=== PATIENT | male | born 1955 | race African-American/Black ===

== ENCOUNTER 2018-12-13 07:30 | Inpatient (IN) ==
[2018-12-09 10:54] LABS: Basophils # 0.1 10*3/uL (0.0-0.2); Basophils % 0.6 % (0.0-0.8); Eosinophils # 0.2 10*3/uL (0.0-0.87); Eosinophils % 2.4 % (0.00-10.9); Hematocrit 38.9 VOL% (42.0-52.0); Hemoglobin 12.5 GM/DL (14.0-18.0); Immature Granulocytes % 0.4 %; Immature Granulocytes Absolute 0.03 #; Lymphocytes % 36.4 % (21.2-54.2); Mean Corpuscular HGB Conc 32.1 GM/DL (32-36); Mean Corpuscular Hemoglobin 28 PG (27-34); Mean Platelet Volume 9.1 FL (9.6-12.0); Monocytes # 0.6 10*3/uL (0.11-0.8); Monocytes % 7.3 % (1.7-12.7); Neutrophils # 4.4 10*3/uL (1.4-7.4); Neutrophils % 52.9 % (38.7-73.9); Platelet Count 419 T/CUMM (130-400); Red Blood Count 4.47 MC/CUMM (3.8-5.5); Red Cell Distribution Width 14.6 % (9.3-17.3); White Blood Count 8.3 T/CUMM (4-12)
[2018-12-09 11:13] LABS: Eosinophils 1 % (0-10); Hypochromasia 1+; Lymphocytes 34 % (20-55); Platelet Estimate Adequate; Segmented Neutrophils 59 % (50-85); Total Cells Counted 100
[2018-12-09 11:34] LABS: Albumin 3.5 G/DL (3.4-5.0); Bilirubin,Total 0.4 MG/DL (0.2-1.0); Calcium 8.9 MG/DL (8.5-10.1); Osmolality,Calculated 275.7 MOS/KG (273-304); Potassium 4.1 MMOL/L (3.5-5.1)
[~2018-12-13 07:30] MED LIST: ceFAZolin 1,000 MG in SYRINGE 1 EACH IV ONE
[2018-12-13] MEDS ORDERED: ceFAZolin 1,000 MG VIAL ONE ×2 (08:14→11:16)
[2018-12-13] MEDS: LACTATED RINGERS 1,000 ML IV SCH ×2 (08:48→23:54)
[2018-12-13] MEDS ORDERED: DIAZEPAM 5 MG TABLET PO ONE (09:33)
[2018-12-13] MEDS ORDERED: FAMOTIDINE 20 MG TABLET PO ONE (09:33)
[2018-12-13] MEDS ORDERED: FAMOTIDINE 20 MG TABLET ONE (10:19)
[2018-12-13] MEDS ORDERED: DIAZEPAM 5 MG TABLET ONE (10:19)
[2018-12-13] MEDS ORDERED: HEPARIN 5,000 UNIT/1 ML VIAL ONE (11:15)
[2018-12-13] MEDS ORDERED: ONDANSETRON 4 MG/2 ML VIAL IV PRN ×2 (14:08→14:48)
[2018-12-13] MEDS ORDERED: DEXTROSE 50% 25 GM/50 ML VIAL IV PRN (14:11)
[2018-12-13] MEDS ORDERED: GLUCAGON 1 MG VIAL IM PRN (14:11)
[2018-12-13] MEDS ORDERED: PROPOFOL 200 MG/20 ML VIAL IV ONE (14:17)
[2018-12-13] MEDS ORDERED: fentaNYL 100 MCG/2 ML VIAL ONE (14:18)
[2018-12-13] MEDS ORDERED: MIDAZOLAM 2 MG/2 ML VIAL ONE (14:18)
[2018-12-13] MEDS ORDERED: PHENYLEPHRINE DRIP 20 MG/250 ML PREMIX IV ONE (14:18)
[2018-12-13] MEDS ORDERED: SEVOFLURANE 1 UNIT/15 MINUTE INH ONE (14:18)
[2018-12-13] MEDS ORDERED: GLYCOPYRROLATE 0.4 MG/2 ML VIAL ONE (14:18)
[2018-12-13] MEDS ORDERED: ePHEDrine 50 MG/ML AMP ONE (14:18)
[2018-12-13] MEDS ORDERED: ONDANSETRON 4 MG/2 ML VIAL ONE ×2 (14:18→14:45)
[2018-12-13] MEDS ORDERED: NEOSTIGMINE 10 MG/10 ML VIAL ONE (14:19)
[2018-12-13] MEDS ORDERED: ACETAMINOPHEN 1,000 MG/100 ML VIAL IV ONE (14:19)
[2018-12-13] MEDS ORDERED: LACTATED RINGERS 1,000 ML IV ONE (14:19)
[2018-12-13] MEDS ORDERED: ROCURONIUM 100 MG/10 ML VIAL IV ONE (14:19)
[2018-12-13] MEDS ORDERED: PHENYLEPHRINE 1 MG/10 ML SYRINGE IV ONE (14:19)
[2018-12-13] MEDS ORDERED: HYDROmorphone 2 MG/1 ML VIAL ONE (14:45)
[2018-12-13] MEDS ORDERED: HYDROmorphone 2 MG/1 ML VIAL IV PRN (14:48)
[2018-12-13] MEDS ORDERED: DEXTROSE 50% 25 GM/50 ML SYRINGE IV PRN (15:30)
[2018-12-13] MEDS: GABAPENTIN 400 MG CAPSULE PO SCH ×2 (17:28→21:31)
[2018-12-13] MEDS: INSULIN REGULAR 100 UNIT/ML SUBCUT SCH ×2 (17:30→21:31)
[2018-12-13] MEDS: CILOSTAZOL 100 MG TABLET PO SCH (21:30)
[2018-12-13] MEDS: HYDROmorphone 2 MG/1 ML VIAL IV PRN (21:31)
[2018-12-14 05:00] LABS: Hematocrit 29.2 VOL% (42.0-52.0); Hemoglobin 9.6 GM/DL (14.0-18.0)
[2018-12-14 05:25] LABS: Calcium 7.9 MG/DL (8.5-10.1); Osmolality,Calculated 277.5 MOS/KG (273-304); Potassium 3.9 MMOL/L (3.5-5.1)
[2018-12-14] MEDS: INSULIN REGULAR 100 UNIT/ML SUBCUT SCH ×4 (07:30→21:07)
[2018-12-14] MEDS: LISINOPRIL/HCTZ 20-25 MG TABLET PO SCH (08:38)
[2018-12-14] MEDS: ROSUVASTATIN 20 MG TABLET PO SCH (08:38)
[2018-12-14] MEDS: CILOSTAZOL 100 MG TABLET PO SCH ×2 (08:38→21:10)
[2018-12-14] MEDS: ASPIRIN EC 81 MG TABLET PO SCH (08:39)
[2018-12-14] MEDS: GABAPENTIN 400 MG CAPSULE PO SCH ×3 (08:39→21:10)
[2018-12-14] MEDS: CLOPIDOGREL 75 MG TABLET PO SCH (08:39)
[2018-12-14] MEDS ORDERED: ASPIRIN CHEW 81 MG TABLET PO SCH (09:00)
[2018-12-14] MEDS: LACTATED RINGERS 1,000 ML IV SCH (09:10)
[2018-12-15] MEDS: INSULIN REGULAR 100 UNIT/ML SUBCUT SCH (08:30)
[2018-12-15 08:43] LABS: Basophils # 0.1 10*3/uL (0.0-0.2); Basophils % 0.6 % (0.0-0.8); Eosinophils # 0.1 10*3/uL (0.0-0.87); Hematocrit 31.4 VOL% (42.0-52.0); Hemoglobin 10.2 GM/DL (14.0-18.0); Immature Granulocytes % 0.4 %; Immature Granulocytes Absolute 0.04 #; Lymphocytes # 2.6 10*3/uL (1.4-4.0); Lymphocytes % 22.8 % (21.2-54.2); Mean Corpuscular HGB Conc 32.5 GM/DL (32-36); Mean Corpuscular Hemoglobin 28 PG (27-34); Mean Corpuscular Volume 86.7 FL (87-102); Monocytes # 1.4 10*3/uL (0.11-0.8); Neutrophils # 7.2 10*3/uL (1.4-7.4); Neutrophils % 63.2 % (38.7-73.9); Platelet Count 317 T/CUMM (130-400); Red Blood Count 3.62 MC/CUMM (3.8-5.5); Red Cell Distribution Width 14.8 % (9.3-17.3); White Blood Count 11.4 T/CUMM (4-12)
[2018-12-15] MEDS: HYDROmorphone 2 MG/1 ML VIAL IV PRN (09:09)
[2018-12-15] MEDS: CILOSTAZOL 100 MG TABLET PO SCH (09:10)
[2018-12-15] MEDS: ROSUVASTATIN 20 MG TABLET PO SCH (09:10)
[2018-12-15] MEDS: LISINOPRIL/HCTZ 20-25 MG TABLET PO SCH (09:10)
[2018-12-15] MEDS: ASPIRIN EC 81 MG TABLET PO SCH (09:11)
[2018-12-15] MEDS: CLOPIDOGREL 75 MG TABLET PO SCH (09:11)
[2018-12-15] MEDS: GABAPENTIN 400 MG CAPSULE PO SCH (09:11)
[2018-12-15 09:19] LABS: Calcium 8.2 MG/DL (8.5-10.1); Osmolality,Calculated 278.5 MOS/KG (273-304); Potassium 3.9 MMOL/L (3.5-5.1)
[2018-12-15 13:07] VITALS: BP 89/52
== END 2018-12-15 12:55 | disposition home or self-care (01) | DRG 253 ==
LOC: N.SDSINP 07:30 → N.3E 15:14
PROVIDERS: ADMIT Surgery; ATTEND Surgery